=== PATIENT | female | born 1990 | race Caucasian/White ===

== ENCOUNTER → 2017-03-24 | Outpatient (CLI) | payer BC ==
[~2017-03-24] MED LIST: IBU600 MG PO; NO HOME MEDICATIONS; PERCOCET 325 MG1 TA2 PO; PHENERGAN25 MG RC; PRENATAL1 TA1 PO; ZOFRAN 4MG T4 MG/TAB PO; ZOFRAN ODT4 MG PO
== END ==
LOC: COL.RAD 13:20
DX: R10.11 Right upper quadrant pain (principal)

== ENCOUNTER → 2017-03-31 | Outpatient (CLI) | payer OTHER | LOC: COL.RAD 11:48 | DX: R10.11 Right upper quadrant pain (principal) | CPT/HCPCS: A9537 ==

== ENCOUNTER 2017-05-28 11:49 | Emergency (ER) | payer OTHER ==
[~2017-05-28] VITALS: Ht 157.5 cm; Wt 52.3 kg
[2017-05-28 11:51] VITALS: TEMP 98.3
[2017-05-28] MEDS ORDERED: EFFEXOR 3737.5 MG/TA PO (11:55)
[2017-05-28 12:32] LABS: COLLECTION METHOD CLEAN CATCH
[2017-05-28 12:42] LABS: BASO % 0.3 % (0.0-2.0); EOS # 0.1 (0.0-0.7); EOS % 0.8 % (0-4.0); GRAN # 6.5 (1.4-6.5); GRAN % 69.6 % (42.2-75.2); HEMATOCRIT 41.1 % (37.0-47.0); LYMPH # 2.2 (1.2-3.4); LYMPH % 24.1 % (20.0-51.0); MEAN CELL VOLUME 89 fl (80.0-100.0); MEAN CORPUSCULAR HEMOGLOBIN 30 pg (27.0-31.0); MEAN CORPUSCULAR HGB CONC 34 g/dl (33.0-37.0); MEAN PLATELET VOLUME 10.3 fl (7.4-10.4); MONO # 0.5 (0.1-0.6); MONO % 5.1 % (1.7-9.3); PLATELET COUNT 228 K/mm3 (130-400); RED BLOOD COUNT 4.61 M/mm3 (4.10-5.30); WHITE BLOOD COUNT 9.3 K/mm3 (4.8-10.8)
[2017-05-28 12:44] LABS: PH 8 (5-8); SQUAMOUS EPITHELIAL 0-2 /hpf; URINE APPEARANCE Clear; URINE BACTERIA Rare /hpf; URINE BILIRUBIN Negative (NEGATIVE); URINE BLOOD Negative (NEGATIVE); URINE COLOR Yellow; URINE GLUCOSE Negative (NEGATIVE); URINE KETONE Negative (NEGATIVE); URINE LEUKOCYTE ESTERASE Negative (NEGATIVE); URINE PROTEIN(semi-quant) Negative (NEGATIVE); URINE RBC 0-2 /hpf; URINE UROBILINOGEN Negative (NEGATIVE)
[2017-05-28 12:57] LABS: ADJUSTED CALCIUM 8.3 mg/dL (8.4-10.2); ALBUMIN 4.7 gm/dL (3.5-5.0); BILIRUBIN,TOTAL 1.2 mg/dL (0.0-1.0); C-REACTIVE PROTEIN 2.5 mg/dL (0.0-0.9); CALCIUM 8.9 mg/dL (8.4-10.2); CREATININE, serum 0.58 mg/dL (0.52-1.25); TOTAL PROTEIN 7.9 gm/dL (6.4-8.2)
[2017-05-28 13:01] LABS: POTASSIUM 3.7 mmol/L (3.4-5.0)
[2017-05-28] MEDS ORDERED: NORCO 325 MG-51 TAB PO (14:42)
[2017-05-28] MEDS ORDERED: PHENERGAN 25 TA25 MG PO (14:42)
[2017-05-28 14:49] VITALS: BP 122/70; PULSE 80
== END 2017-05-28 14:52 | disposition home or self-care (01) ==
LOC: COL.ER 11:49
PROVIDERS: Physician Assistant
DX: N83.291 Other ovarian cyst, right side (principal); Z87.42 Personal history of other diseases of the female genital tract
CPT/HCPCS: J1170; J1885; J2550; J7030; J7050; Q9967

== ENCOUNTER 2017-07-12 16:36 | Emergency (ER) | payer OTHER ==
[~2017-07-12] VITALS: Ht 157.5 cm; Wt 52.3 kg
[~2017-07-12 16:36] MED LIST changes: +EFFEXOR 3737.5 MG/TA PO; +NORCO 325 MG-51 TAB PO; +PHENERGAN 25 TA25 MG PO
[2017-07-12 16:39] VITALS: TEMP 98.2
[2017-07-12 18:11] VITALS: BP 108/75; PULSE 63
== END 2017-07-12 18:12 | disposition home or self-care (01) ==
LOC: COL.ER 16:36
DX: S09.90XA Unspecified injury of head, initial encounter (principal); G43.909 Migraine, unspecified, not intractable, without status migrainosus; F41.9 Anxiety disorder, unspecified; V49.40XA Driver injured in collision with unspecified motor vehicles in traffic accident, initial encounter
CPT/HCPCS: J1885

== ENCOUNTER 2018-06-28 04:04 | Emergency (ER) | payer SELFPAY ==
[~2018-06-28] VITALS: Ht 157.5 cm; Wt 52.3 kg
[~2018-06-28 04:04] MED LIST changes: -FIORICET 325 MG1 TA1 PO
[2018-06-28 04:12] VITALS: TEMP 98.9
[2018-06-28 04:37] LABS: COLLECTION METHOD CLEAN CATCH
[2018-06-28 04:52] LABS: MUCOUS Present /lpf; PH 7 (5-8); URINE APPEARANCE Clear; URINE BACTERIA None Seen /hpf; URINE BILIRUBIN Negative (NEGATIVE); URINE BLOOD Negative (NEGATIVE); URINE COLOR Yellow; URINE GLUCOSE Negative (NEGATIVE); URINE KETONE Negative (NEGATIVE); URINE LEUKOCYTE ESTERASE Negative (NEGATIVE); URINE NITRATE Negative (NEGATIVE); URINE PROTEIN(semi-quant) 1+ (NEGATIVE); URINE RBC 0-2 /hpf; URINE UROBILINOGEN Negative (NEGATIVE)
[2018-06-28 04:52] LABS: BASO % 0.1 % (0.0-2.0); EOS % 0.3 % (0-4.0); GRAN # 10.3 (1.4-6.5); GRAN % 88.6 % (42.2-75.2); HEMATOCRIT 40.3 % (37.0-47.0); HEMOGLOBIN 13.6 g/dl (12.5-16.0); LYMPH # 0.7 (1.2-3.4); MEAN CELL VOLUME 89 fl (80.0-100.0); MEAN CORPUSCULAR HEMOGLOBIN 30 pg (27.0-31.0); MEAN CORPUSCULAR HGB CONC 34 g/dl (33.0-37.0); MEAN PLATELET VOLUME 9.8 fl (7.4-10.4); MONO # 0.5 (0.1-0.6); MONO % 4.6 % (1.7-9.3); PLATELET COUNT 182 K/mm3 (130-400); RED BLOOD COUNT 4.52 M/mm3 (4.10-5.30); REDCELL DISTRIBUTION WIDTH-CV 12.1 % (11.5-14.5)
[2018-06-28 05:24] LABS: ALBUMIN 4.1 gm/dL (3.5-5.0); BILIRUBIN,TOTAL 0.4 mg/dL (0.0-1.0); C-REACTIVE PROTEIN 0.8 mg/dL (0.0-0.9); CALCIUM 9.1 mg/dL (8.4-10.2); CREATININE, serum 0.58 mg/dL (0.52-1.25); POTASSIUM 4.2 mmol/L (3.4-5.0); TOTAL PROTEIN 7.5 gm/dL (6.4-8.2)
[2018-06-28 08:32] VITALS: BP 102/60; PULSE 96
[2018-06-28] MEDS ORDERED: FIORICET 325 MG1 TA1 PO (17:18)
[2018-06-28] MEDS ORDERED: ZOFRAN ODT4 MG PO (21:39)
== END 2018-06-28 08:51 | disposition home or self-care (01) ==
LOC: COL.ER 04:04
PROVIDERS: Emergency Medicine
DX: R10.11 Right upper quadrant pain (principal); R10.31 Right lower quadrant pain; G43.909 Migraine, unspecified, not intractable, without status migrainosus; Z90.49 Acquired absence of other specified parts of digestive tract; Z98.51 Tubal ligation status
CPT/HCPCS: J1170; J1885; J2405; J7030

== ENCOUNTER → 2018-06-28 | Emergency (ER) | payer SELFPAY ==
[~2018-06-28] VITALS: Ht 157.5 cm; Wt 52.3 kg
[~2018-06-28] MED LIST changes: +FIORICET 325 MG1 TA1 PO
[2018-06-28 18:00] LABS: BASO % 0.1 % (0.0-2.0); EOS # 0.1 (0.0-0.7); EOS % 0.7 % (0-4.0); GRAN # 5.7 (1.4-6.5); GRAN % 75.7 % (42.2-75.2); HEMOGLOBIN 12.3 g/dl (12.5-16.0); LYMPH # 1.3 (1.2-3.4); MEAN CELL VOLUME 91 fl (80.0-100.0); MEAN CORPUSCULAR HEMOGLOBIN 31 pg (27.0-31.0); MEAN CORPUSCULAR HGB CONC 34 g/dl (33.0-37.0); MEAN PLATELET VOLUME 9.8 fl (7.4-10.4); MONO # 0.4 (0.1-0.6); MONO % 5.4 % (1.7-9.3); PLATELET COUNT 165 K/mm3 (130-400); RED BLOOD COUNT 4.02 M/mm3 (4.10-5.30); REDCELL DISTRIBUTION WIDTH-CV 12.2 % (11.5-14.5)
[2018-06-28 18:01] LABS: HEMATOCRIT 36.6 % (37.0-47.0)
[2018-06-28 18:23] LABS: ALBUMIN 3.8 gm/dL (3.5-5.0); BILIRUBIN,TOTAL 0.5 mg/dL (0.0-1.0); C-REACTIVE PROTEIN 5.6 mg/dL (0.0-0.9); CALCIUM 8.5 mg/dL (8.4-10.2); CREATININE, serum 0.57 mg/dL (0.52-1.25); POTASSIUM 3.9 mmol/L (3.4-5.0)
[2018-06-28 19:43] VITALS: TEMP 98.3
[2018-06-28 21:43] VITALS: BP 125/77; PULSE 98
== END ==
LOC: COL.ER 16:47
PROVIDERS: Physician Assistant
DX: N83.291 Other ovarian cyst, right side (principal); Z98.51 Tubal ligation status; Z90.89 Acquired absence of other organs
CPT/HCPCS: J3010; J7030; Q9967

== ENCOUNTER 2021-03-09 15:55 | Emergency (ER) | payer OTHER ==
[~2021-03-09 15:55] MED LIST changes: +FIORICET 325 MG1 TA1 PO
== END 2021-03-09 16:55 | disposition left against medical advice (07) ==
LOC: COL.ER 15:55
DX: R69 Illness, unspecified (principal)

== ENCOUNTER → 2021-10-17 | Emergency (ER) | payer OTHER | LOC: COL.ER 05:20 | DX: R69 Illness, unspecified (principal) ==

== ENCOUNTER 2024-01-31 23:09 | Emergency (ER) | payer OTHER ==
[~2024-01-31] VITALS: Ht 157.5 cm; Wt 52.3 kg
[~2024-01-31 23:09] MED LIST changes: +EFFEXOR-XR150 MG PO; +KLONOPIN 0.5MG0.5 MG PO
[2024-01-31 23:16] VITALS: TEMP 98.4
[2024-02-01 01:41] VITALS: BP 126/67; PULSE 85
== END 2024-02-01 01:30 | disposition home or self-care (01) ==
LOC: COL.ER 23:09
DX: F68.8 Other specified disorders of adult personality and behavior (principal)